=== PATIENT | female | born 1970 | race Caucasian/White ===

== ENCOUNTER → 2017-04-11 | Outpatient (CLI) | payer OTHER ==
--- NOTE | 2017-04-11 14:16 | DRAGON STRESS TEST REPORT ---
EXERCISE TREADMILL TEST. DATE OF PROCEDURE: April 11, 2017 INDICATION: Patient with unspecified chest pain. Resting EKG: Sinus rhythm, no baseline ST segment changes. PROCEDURE REPORT: Baseline heart rate: 70 beats per minute with blood pressure of 130/80. Patient had no significant complaints at baseline. Patient was exercised on a standard Benjamin protocol. Patient exercised for total of 6 minutes. Exercise was stopped because of fatigue and shortness of breath. Patient complained of chest discomfort at peak exercise. If automatic blood pressure recorded and if felt not accurate manual blood pressure then were recorded at appropriate intervals. Peak heart rate: 150 bpm, 86% of predicted maximum. Peak blood pressure: 200/61 mmHg. Reason for termination: Dyspnea and fatigue. Patient also complained of chest discomfort at peak exercise. Double product: Adequate kcal Exercise EKG: Showed some baseline artifact during exercise and borderline ST segment depression of 0.5 mm in the inferior lateral chest leads felt not to be significant. CONCLUSIONS: Chest discomfort noted at peak exercise. However there was no significant ST segment changes noted. Below average exercise tolerance. RECOMMENDATIONS: Recommend nuclear stress test or stress echo as single-vessel disease can be missed. Aggressive risk factor modification, medical therapy. Consider cardiology consultation if clinically indicated. Kip Amaya M.D., [employer] Operator chassis mechanic, Board certified in cardiovascular diseases, Nuclear cardiology, Echocardiography Cardiac CT and cardiac MRI Ph. [phone] Ph. [phone] [facility]
--- NOTE | 2017-04-12 09:11 | XCELERA REPORT ---
[address] [address] Transthoracic Echocardiogram Report Name: REBECCA MITTAL Age: 47 yrs Gender: Female : 1970 Patient Status: Outpatient Patient Location: Study Date: 04/11/2017 09:42 AM Height: 66 in Weight: 245 lb BSA: 2.2 m2 Procedure: A complete two-dimensional transthoracic echocardiogram was performed (2D, M-mode, spectral and color flow Doppler). The study was technically adequate with some images being suboptimal in quality. Reason For Study: CP Ordering Physician: NATALIE HARDY Performed By: Dominga Deshpande Interpretation Summary The left ventricular ejection fraction is normal. Doppler measurements suggest normal left ventricular diastolic function There is normal left ventricular wall thickness. The left ventricle is grossly normal size. No regional wall motion abnormalities noted. Borderline right ventricular enlargement. The right atrium is normal. The left atrial size is normal. There is a trace amount of mitral regurgitation There is no mitral valve stenosis. There is no aortic valve stenosis No aortic regurgitation is present. There is a trace or physiologic amount of tricuspid regurgitation Tricuspid regurgitation jet envelope not well defined to measure RV systolic pressure accurately. The aortic root is not well visualized but is probably normal size. The inferior vena cava appeared normal and decreased > 50% with respiration (RAP 5-10 mmHg) There is no pericardial effusion. MMode/2D Measurements \T\ Calculations RVDd: 3.2 cm LVIDd: 4.3 cm FS: 38.1 % Ao root diam: 2.4 cm IVSd: 1.0 cm LVIDs: 2.7 cm EDV(Teich): 83.8 ml LVPWd: 1.0 cm ESV(Teich): 26.3 ml Ao root area: 4.6 cm2 EF(Teich): 68.6 % Doppler Measurements \T\ Calculations MV E max lidya: MV dec slope: Ao V2 max: LV V1 max P.5 cm/sec 156.6 cm/sec 5.8 mmHg MV A max lidya: 351.6 cm/sec2 Ao max PG: LV V1 max: 79.2 cm/sec MV dec time: 9.8 mmHg 120.1 cm/sec MV E/A: 1.3 0.30 sec PI end-d lidya: TR max lidya: 109.8 cm/sec 154.7 cm/sec TR max P.6 mmHg Left Ventricle The left ventricle is grossly normal size. There is normal left ventricular wall thickness. The left ventricular ejection fraction is normal. Doppler measurements suggest normal left ventricular diastolic function. No regional wall motion abnormalities noted. Right Ventricle Borderline right ventricular enlargement. There is normal right ventricular wall thickness. The right ventricular systolic function is normal. Atria The right atrium is normal. The left atrial size is normal. Interarterial septum not well visualized and not well dopplered. Cannot comment on ASD/PFO presence. Mitral Valve The mitral valve is grossly normal. There is no mitral valve stenosis. There is a trace amount of mitral regurgitation. Aortic Valve The aortic valve is grossly normal. There is no aortic valve stenosis. No aortic regurgitation is present. Tricuspid Valve The tricuspid valve is not well visualized, but is grossly normal. There is no tricuspid stenosis. There is a trace or physiologic amount of tricuspid regurgitation. Tricuspid regurgitation jet envelope not well defined to measure RV systolic pressure accurately. Pulmonic Valve The pulmonic valve is not well visualized. Great Vessels The aortic root is not well visualized but is probably normal size. The inferior vena cava appeared normal and decreased > 50% with respiration (RAP 5-10 mmHg). Effusions There is no pericardial effusion. : NATALIE HARDY > Kip Amaya
== END ==
LOC: SP 08:44
PROVIDERS: ATTEND Physician Assistant
DX: R07.89 Other chest pain (principal)
CPT/HCPCS: 93017; 93306

== ENCOUNTER 2017-06-25 03:50 | Emergency (ER) | payer OTHER ==
[2017-06-25] MEDS ORDERED: FENTANYL CITRATE INJ/PF 100 MCG/2 ML AMPUL IV ONE (04:07)
--- NOTE | 2017-06-25 04:08 | ER Document Report ---
ED General - General Chief Complaint: Arm Injury Stated Complaint: RIGHT ELBOW PAIN Time Seen by Provider: 06/25/17 04:02 Notes: Patient is 47-year-old female who presents after slipping in her kitchen. Said she fell onto her right elbow. She says her elbows popped out of place. This is never happened before. She denies any other pain. She says she did hit her forehead on the fridge but does not hurt, she did not have loss of consciousness , she has had no vomiting. She complains of little bit numbness into the fourth and fifth digits of her right hand. She is able to move her fingers without any difficulty. No other complaints at this time. She says she has no medical allergies. TRAVEL OUTSIDE OF THE [place] IN LAST 30 DAYS: No Past Medical History - Social History Smoking Status: Never Smoker Frequency of alcohol use: None Drug Abuse: None Family History: Reviewed & Not Pertinent Review of Systems - Review of Systems Notes: My Normal Review Basic REVIEW OF SYSTEMS: CONSTITUTIONAL : Denies fever, chills, or sweats. Denies recent illness. RESPIRATORY: Denies cough, cold, or chest congestion. Denies shortness of breath, difficulty breathing, or wheezing. GASTROINTESTINAL: Denies abdominal pain. Denies nausea, vomiting, or diarrhea. Denies constipation. Last BM: MUSCULOSKELETAL: Pain to palpation of right elbow. SKIN: Denies rash or skin lesions. NEUROLOGICAL: Denies motor loss. Mild sensory loss in fourth and fifth digits of right hand. ALL OTHER SYSTEMS REVIEWED AND NEGATIVE. Physical Exam - Notes Notes: General Appearance: Well nourished, alert, cooperative, no acute distress, moderate obvious discomfort. Vitals: reviewed, See vital signs table. Head: Very small hematoma to the right forehead. No surrounding crepitance. Eyes: PERRL, EOMI, Conjuctiva clear Mouth: No decreasd moisture Throat: No tonsillar inflammation, No airway obstruction, No lymphadenopathy Neck: Supple, no neck tenderness Lungs: No wheezing, No rales, No rhonci, No accessory muscle use, good air exchange bilaterally. Heart: Normal rate, Regular rythm, No murmur, no rub Extremities: strength 5/5 in all extremities, good pulses in all extremities, patient is holding her right arm with the elbow in a flexed position. She says it is very painful if she tries to move her arm at all. She has no deformity to the upper arm or forearm. She has good radial and ulnar pulses. She has good distal sensation except for she feels it is a little bit diminished when I touch her fourth and fifth digits. She is able to fully flex and extend all fingers in her hand., no edema. Skin: warm, dry, appropriate color, no rash Neuro: speech clear, oriented x 3, normal affect, responds appropriately to questions. Course - Re-evaluation Re-evalutation: 06/25/17 06:00 After the patient received propofol she was well sedated and was able to easily reduce her right elbow. She now feels much improved. Patient will be placed in a sling but is encouraged to place her elbow through range of motion several times a day to help prevent it from becoming stiff. Patient to follow-up with the orthopedist for reevaluation. Patient to return to the ER if she has recurrence of dislocation, any recurrence of numbness or weakness into her hand , or if she has further concerns. Patient agrees with plan and will be discharged home. Dictation of this chart was performed using voice recognition software; therefore, there may be some unintended grammatical errors. Procedures - Conscious Sedation Conscious sedation Consent obtained: Yes Normal healthy pt.: P1. - ASA Classification Airway Evaluation: Normal anatomy Mallampati Classification: Class 1 Used during procedure: Suction available, IV access obtained, Pulse ox on pt., environmental monitoring technician on pt. Medications administered: Diprivan Reversal agents: None I personally performed/intraservice time: Sedation, Procedure, 30 min or less Complications: No Notes: Patient was given a total of 100mg of Propofol which provided good sedation without any complications. Patient has recovered from sedation. - Joint Reduction/Fracture Care right shoulder Consent obtained: Yes Conscious sedation: Yes Pre-procedure NV exam: No - some numbness in 4th and 5ht digits Fracture: Other - dislocation Manipulation comment: flexion with traction Post-procedure NV exam: Yes Post-reduction x-ray: Joint reduced Reduction attempts: 1 Complications: Yes Discharge - Discharge Clinical Impression: Dislocation of right elbow Qualifiers: Encounter type: initial encounter Qualified Code(s): S53.104A - Unspecified dislocation of right ulnohumeral joint, initial encounter Condition: Good Disposition: HOME, SELF-CARE Additional Instructions: Please follow-up with orthopedic doctor, Dr. Renae. Please wear a sling in the meantime. Take it out of the sling a few times a day to place your elbow thru range of motion to help keep it from becoming stiff. Please return to the ER immediately if you have increasing pain in your elbow, recurrence of dislocation of the elbow, weakness or numbness into your hand, or if you have any further concerns. Forms: Return to Work Referrals: GENIE RENAE MD [ACTIVE STAFF] - 06/27/17
[2017-06-25] MEDS ORDERED: PROPOFOL INJ 200 MG/20 ML VIAL IV ONE (04:57)
[2017-06-25] MEDS ORDERED: NORMAL SALINE 1000 ML 1,000 ML IV ONE (04:58)
--- NOTE | 2017-06-25 04:59 | RADIOLOGY REPORT (SQ) ---
EXAM DESCRIPTION: ELBOW RIGHT AP/LAT COMPLETED DATE/TIME: 06/25/2017 4:45 am REASON FOR STUDY: trauma COMPARISON: None. NUMBER OF VIEWS: Four views. TECHNIQUE: AP, lateral, and both oblique radiographic images acquired of the right elbow. LIMITATIONS: None. FINDINGS: MINERALIZATION: Normal. BONES: Complete lateral dislocation of the right elbow joints including the ulnohumeral and radiohume ral joints. 0.5 x 0.2 cm faint fracture fragment proximal to the ulnar head. JOINT: Small effusion/swelling. SOFT TISSUES: Small swelling. No radiopaque foreign body. OTHER: No other significant finding. IMPRESSION: Complete lateral dislocation of the right elbow joint. TECHNICAL DOCUMENTATION: JOB ID: [id number] [employer]- All Rights Reserved
[2017-06-25 06:02] VITALS: BP 154/76
--- NOTE | 2017-06-25 06:24 | RADIOLOGY REPORT (SQ) ---
EXAM DESCRIPTION: ELBOW RIGHT AP/LAT COMPLETED DATE/TIME: 06/25/2017 5:51 am REASON FOR STUDY: post reduction COMPARISON: None. NUMBER OF VIEWS: Three views. TECHNIQUE: Three-view radiographic images acquired of the right elbow. LIMITATIONS: None. FINDINGS: MINERALIZATION: Normal. BONES: No acute fracture or dislocation. No worrisome bone lesions. JOINT: No effusion. SOFT TISSUES: Mild swelling posterior to the right elbow. OTHER: No other significant finding. IMPRESSION: Interval reduction. Mild swelling. TECHNICAL DOCUMENTATION: JOB ID: [id number]- All Rights Reserved
== END 2017-06-25 07:23 | disposition home or self-care (01) ==
LOC: ER 03:50
DX: S53.144A Lateral dislocation of right ulnohumeral joint, initial encounter (principal); S00.83XA Contusion of other part of head, initial encounter; W01.198A Fall on same level from slipping, tripping and stumbling with subsequent striking against other object, initial encounter; R20.0 Anesthesia of skin; M25.521 Pain in right elbow
CPT/HCPCS: 99283; 99152; 96374; 73070; 24600; J3010

== ENCOUNTER 2020-06-03 13:42 | Observation (INO) | payer SELFPAY ==
--- NOTE | 2020-06-03 14:36 | EKG REPORT ---
SEVERITY:- ABNORMAL ECG - SINUS TACHYCARDIA PROBABLE INFERIOR INFARCT, AGE INDETERMINATE : Confirmed by: Nanci Lugo MD 03-Jun-2020 14:34:51
--- NOTE | 2020-06-03 14:38 | ER Document Report ---
ED General - General Chief Complaint: Chest Pain Stated Complaint: CHEST PAIN,ABNORMAL LABS Time Seen by Provider: 06/03/20 14:27 Mode of Arrival: Ambulatory Information source: Patient Notes: Patient is a 50-year-old female coming in today for anemia. He reports over the past year having menstrual cycles that are extremely heavy in nature. She has been on the Depakote shot to try to keep these under control. She has been having heavier than normal bleeding passing numerous large clots. She is reporting feeling lightheaded and very short of breath when she walks around the house just to do her regular activities of daily living. Apparently she went in to have a physical today. They checked her hemoglobin and it was 7. She was sent to the emergency department for further evaluation. TRAVEL OUTSIDE OF THE [place] IN LAST 30 DAYS: No - Related Data Allergies/Adverse Reactions: No Known Allergies Allergy (Unverified 06/03/20 14:36) Past Medical History - General Information source: Patient - Social History Smoking Status: Never Smoker Family History: Reviewed & Not Pertinent Patient has suicidal ideation: No Patient has homicidal ideation: No Review of Systems - Review of Systems Notes: Constitutional: No fevers. No chills. EENT: No eye redness. No eye pain. No ear pain. No sore throat. Cardiovascular: No chest pain. No palpitations. Respiratory: No cough. +shortness of breath. No respiratory distress. Gastrointestinal: No abdominal pain. No nausea, vomiting, or diarrhea. Genitourinary: Vaginal bleeding Musculoskeletal: Atraumatic. No swelling. No deformities. Skin: No rash or lesions. Lymphatic: No swollen lymph nodes. Neurologic: No headache. No syncope. +dizziness Psychiatric: No suicidal or homicidal ideation. Physical Exam - Vital signs Vitals: Temp Pulse Resp BP Pulse Ox 99.0 F 114 H 114 H 152/78 H 100 06/03/20 14:03 06/03/20 14:03 06/03/20 14:03 06/03/20 14:03 06/03/20 14:03 - Notes Notes: General: Well-developed, well-nourished. In no acute distress. Non-toxic appearing. Pale appearance Cardiac: Well-perfused. Regular rate and rhythm. No murmurs, rubs, or gallops. Pulmonary: No respiratory distress. No cyanosis. Bilateral lung carlos are clear to auscultation. Abdominal: Non-distended. Non-rigid. Bowels sounds are present in all four quadrants. No guarding or rebound. HEENT: Head is atraumatic. Conjunctivae not reddened. No tearing. PERRL. EOMI. Orbits atraumatic. No periorbital swelling or erythema. Oropharynx is without erythema, swelling, or exudates. Neck: Supple. No adenopathy. No meningismus. Dermatologic: Warm with good turgor. No rash. Atraumatic. Chest: Atraumatic. No chest wall tenderness to palpation. Musculoskeletal: Moves all extremities well. No range of motion deficits. no muscular or joint tenderness. No paraspinal muscle tenderness. no midline spinal tenderness or step-off. Genitourinary: Examination deferred Neurologic: No gross neurologic deficits. Psychiatric: Normal mood. Course - Re-evaluation Re-evalutation: 06/03/20 14:38 Think patient would probably benefit from a pelvic ultrasound given that we do not really know why she is having this heavier bleeding. We will get typical labs consistent with anemia work-up expecting potentially the possibility for blood transfusion. 06/03/20 15:51 Hemoglobin is 6.3. Given that we do not really know where this bleeding is coming from I contacted Dr. Zavala from [facility] who will admit the patient for blood transfusion. She ordered 3 units of packed red blood cells. Pelvic ultrasound is still pending. - Vital Signs Vital signs: Temp Pulse Resp BP Pulse Ox 99.0 F 114 H 13 140/66 H 100 06/03/20 14:03 06/03/20 14:03 06/03/20 14:09 06/03/20 14:09 06/03/20 14:40 - Laboratory Result Diagrams: 06/03/20 15:00 06/03/20 15:00 Laboratory results interpreted by me: 06/03/20 06/03/20 06/03/20 15:00 15:00 15:00 RBC 2.30 L Hgb 6.3 L Hct 19.3 L RDW 16.0 H Chloride 114 H Glucose 161 H Calcium 8.2 L Total Protein 5.7 L Albumin 3.3 L Crossmatch See Detail Discharge - Discharge Clinical Impression: Dysfunctional uterine bleeding, Symptomatic anemia Condition: Good Disposition: ADMITTED OBSERVATION Admitting Provider: Dr. Perla Zavala Unit Admitted: Labor and Delivery
--- NOTE | 2020-06-03 14:59 | RADIOLOGY REPORT (SQ) ---
EXAM DESCRIPTION: CHEST SINGLE VIEW IMAGES COMPLETED DATE/TIME: 06/03/2020 2:23 pm REASON FOR STUDY: bed t2 chest pain COMPARISON: None. EXAM PARAMETERS: NUMBER OF VIEWS: One view. TECHNIQUE: Single frontal radiographic view of the chest acquired. RADIATION DOSE: NA LIMITATIONS: None. FINDINGS: LUNGS AND PLEURA: No opacities, masses or pneumothorax. No pleural effusion. MEDIASTINUM AND HILAR STRUCTURES: No masses. Contour normal. HEART AND VASCULAR STRUCTURES: Heart normal in size. Normal vasculature. BONES: No acute findings. HARDWARE: None in the chest. OTHER: No other significant finding. IMPRESSION: 1. NO ACUTE RADIOGRAPHIC FINDING IN THE CHEST. TECHNICAL DOCUMENTATION: JOB ID: [id number] [employer]- All Rights Reserved Reading location - IP/workstation name: [email or web address]
[2020-06-03 15:24] LABS: ABSOLUTE EOSINOPHILS # (AUTO) 0.1 10^3/uL (0.0-0.6); ABSOLUTE LYMPHOCYTES (AUTO) 1.4 10^3/uL (0.5-4.7); ABSOLUTE MONOCYTES (AUTO) 0.2 10^3/uL (0.1-1.4); ABSOLUTE NEUT (AUTO) 3.2 10^3/uL (1.7-8.2); BASOPHILS % (AUTO) 0.4 % (0-2); EOSINOPHILS % (AUTO) 2.4 % (0-6); HEMATOCRIT 19.3 % (36.0-47.0); MEAN CORPUSCULAR HEMOGLOBIN 27.6 pg (27.0-33.4); MEAN CORPUSCULAR HGB CONC 32.8 g/dL (32.0-36.0); MEAN CORPUSCULAR VOLUME 84 fl (80-97); MONOCYTES % (AUTO) 4.2 % (3-13); PLATELET COUNT 156 10^3/uL (150-450); TOTAL CELLS COUNTED % (AUTO) 100 %
[2020-06-03 15:27] LABS: HEMOGLOBIN 6.3 g/dL (12.0-15.5)
[2020-06-03 15:43] LABS: ALBUMIN 3.3 g/dL (3.5-5.0); ALKALINE PHOSPHATASE 56 U/L (38-126); ANION GAP 6 (5-19); ASPARTATE AMINO TRANSFERASE 16 U/L (14-36); BILIRUBIN,DIRECT 0.3 mg/dL (0.0-0.4); BILIRUBIN,TOTAL 0.4 mg/dL (0.2-1.3); BLOOD UREA NITROGEN 10 mg/dL (7-20); CALCIUM 8.2 mg/dL (8.4-10.2); CARBON DIOXIDE 23 mmol/L (22-30); CHLORIDE 114 mmol/L (98-107); CREATINE KINASE 76 U/L (30-135); GLUCOSE 161 mg/dL (75-110); TOTAL PROTEIN 5.7 g/dL (6.3-8.2)
[2020-06-03] MEDS ORDERED: FUROSEMIDE INJ/PF 20 MG/2 ML SDV IV PRN ×2 (15:46→18:15)
[2020-06-03] MEDS ORDERED: NORMAL SALINE 250 ML IV PRN ×4 (15:46→17:25)
[2020-06-03 15:54] LABS: CREATINE KINASE MB 0.65 ng/mL (<4.55)
[2020-06-03 15:57] LABS: TROPONIN I < 0.012 ng/mL
[2020-06-03] MEDS ORDERED: DIPHENHYDRAMINE HCL 50 MG CAPSULE PO ONE (17:22)
[2020-06-03] MEDS ORDERED: ACETAMINOPHEN 325 MG TABLET PO ONE (17:23)
--- NOTE | 2020-06-03 17:27 | RADIOLOGY REPORT (SQ) ---
EXAM DESCRIPTION: U/S NON-OB PELVIS LTD W/O DOP IMAGES COMPLETED DATE/TIME: 06/03/2020 5:05 pm REASON FOR STUDY: DUB COMPARISON: None. TECHNIQUE: Dynamic and static grayscale images acquired of the pelvis via transabdominal approach an d recorded on PACS. Additional selected color Doppler and spectral images recorded. LIMITATIONS: None. FINDINGS: UTERUS: Contour normal. No mass. ENDOMETRIAL STRIPE: There is heterogenous material in the endometrium, measuring 2.7 x 3.3 x 4.4 cm. CERVIX: No nabothian cysts. RIGHT OVARY AND DOPPLER: Normal size. No worrisome masses. Normal arterial vascular flow without evid ence for torsion. LEFT OVARY AND DOPPLER: Normal size. No worrisome masses. Normal arterial vascular flow without evide nce for torsion. FREE FLUID: None noted. OTHER: No other significant finding. MEASUREMENTS: UTERUS: 6.1 x 6.4 x 10.7 cm. ENDOMETRIAL STRIPE: See above. RIGHT OVARY: 1.3 x 2.1 x 2.1 cm. LEFT OVARY: 1.3 x 1.6 x 2.0 cm. IMPRESSION: HETEROGENOUS MATERIAL IN THE ENDOMETRIUM. LIMITED EVALUATION ON TRANSABDOMINAL IMAGING. THIS MAY REPRESENT BLOOD VERSUS SUBMUCOSAL FIBROID VERSUS ENDOMETRIAL MASS. TRANSVAGINAL IMAGING M AY PROVIDE BETTER VISUALIZATION. TECHNICAL DOCUMENTATION: JOB ID: [id number] 2010 [employer]- All Rights Reserved Rev-01/27 Reading location - IP/workstation name: [email or web address]
--- NOTE | 2020-06-03 17:57 | PDOC H&P ---
History of Present Illness Admission Date/PCP: 06/03/20 16:06 Patient complains of: excessive vaginal bleeding History of Present Illness: REBECCA MITTAL is a 50 year old female here with excessive vaginal bleeding. [facility] She saw physician at [facility] last week to get additional depo provera because she indicated that normally she starts to bleed when her depo comes close to being due. She indicates that her bleeding now has slowed to mild/moderate bleeding but she is fatigued and dizzy today. Social History Information Source: Patient Smoking Status: Never Smoker Electronic Cigarette use?: No Frequency of Alcohol Use: Rare Hx Recreational Drug Use: No Drugs: None Hx Prescription Drug Abuse: No Family History Family History: Reviewed & Not Pertinent Parental Family History Reviewed: No Children Family History Reviewed: No Sibling(s) Family History Reviewed.: No Medication/Allergy Home Medications: Hydrochlorothiazide 12.5 mg PO DAILY 06/03/20 Medroxyprogesterone Acet [Depo-Provera Inj 150 mg/1 ml Vial] 150 mg IM Q3M 0 06/03/20 Allergies/Adverse Reactions: No Known Allergies Allergy (Unverified 06/03/20 14:36) Physical Exam - Physical Exam Vital Signs: Temp Pulse Resp BP Pulse Ox 97.6 F 101 H 18 149/64 H 100 06/03/20 17:26 06/03/20 17:26 06/03/20 17:26 06/03/20 17:26 06/03/20 17:26 Intake & Output 06/02/20 06/03/20 06/04/20 06:59 06:59 06:59 Weight 111.13 kg General appearance: PRESENT: no acute distress, cooperative Result Laboratory Results: 06/03/20 15:00 06/03/20 15:00 06/03/20 06/03/20 06/03/20 14:30 15:00 15:00 WBC Cancelled 5.0 RBC Cancelled 2.30 L Hgb Cancelled 6.3 L Hct Cancelled 19.3 L MCV Cancelled 84 MCH Cancelled 27.6 MCHC Cancelled 32.8 RDW Cancelled 16.0 H Plt Count Cancelled 156 Seg Neutrophils % Cancelled 64.0 Sodium 142.5 Potassium 4.0 Chloride 114 H Carbon Dioxide 23 Anion Gap 6 BUN 10 Creatinine 0.60 Est GFR ( Amer) > 60 Glucose 161 H Calcium 8.2 L Total Bilirubin 0.4 AST 16 Alkaline Phosphatase 56 Total Protein 5.7 L Albumin 3.3 L Blood Type Antibody Screen 06/03/20 15:00 WBC RBC Hgb Hct MCV MCH MCHC RDW Plt Count Seg Neutrophils % Sodium Potassium Chloride Carbon Dioxide Anion Gap BUN Creatinine Est GFR ( Amer) Glucose Calcium Total Bilirubin AST Alkaline Phosphatase Total Protein Albumin Blood Type A POSITIVE Antibody Screen NEGATIVE 06/03/20 06/03/20 15:00 15:00 Creatine Kinase 76 CK-MB (CK-2) 0.65 Troponin I < 0.012 Impressions: Chest X-Ray 06/03/20 14:09 IMPRESSION: 1. NO ACUTE RADIOGRAPHIC FINDING IN THE CHEST. Pelvis Ultrasound 06/03/20 15:39 IMPRESSION: HETEROGENOUS MATERIAL IN THE ENDOMETRIUM. LIMITED EVALUATION ON TRANSABDOMINAL IMAGING. THIS MAY REPRESENT BLOOD VERSUS SUBMUCOSAL FIBROID VERSUS ENDOMETRIAL MASS. TRANSVAGINAL IMAGING MAY PROVIDE BETTER VISUALIZATION. Assessment & Plan - Diagnosis (1) Dysfunctional uterine bleeding Is this a current diagnosis for this admission?: Yes (2) Symptomatic anemia Is this a current diagnosis for this admission?: Yes - Time Time Spent: 30 to 50 Minutes Critical Time spent with patient: Less than 15 minutes Medications reviewed and adjusted accordingly: Yes Anticipated Discharge Disposition: Home, Self Care Anticipated Discharge Timeframe: within 24 hours - Inpatient Certification Based on my medical assessment, after consideration of the patient's comorbidities, presenting symptoms, or acuity I expect that the services needed warrant INPATIENT care.: Yes I certify that my determination is in accordance with my understanding of Medicare's requirements for reasonable and necessary INPATIENT services [42 CFR 412.3e].: Yes Medical Necessity: Failure to Improve With Outpatient Therapy, Other - need for blood transfusion - Plan Summary Plan Summary: will give IV premarin to stabilize the endometrium. Plan to send home with control pills and follow up with [facility] physician next week. Blood transfusion x 3 units. Will give lasix 20 mg between 2nd and 3rd unit and recheck CBC in AM.
[2020-06-03] MEDS: ESTROGENS,CONJUGATED 25 MG VIAL IV SCH ×2 (18:02→23:20)
[2020-06-04] MEDS ORDERED: ACETAMINOPHEN 325 MG TABLET PO ONE (06:00)
[2020-06-04] MEDS: ESTROGENS,CONJUGATED 25 MG VIAL IV SCH ×2 (06:03→17:14)
[2020-06-04] MEDS ORDERED: HYDROCHLOROTHIAZIDE 12.5 MG TABLET PO SCH (08:00)
--- NOTE | 2020-06-04 11:08 | PDOC DISCHARGE SUMMARY ---
Impression - Admit/DC Date/PCP Admission Date/Primary Care Provider: 06/03/20 16:06 Discharge Date: 06/04/20 - Assessment Summary: The patient was admitted and underwent blood transfusion. She has been seen in office but no pap or EmBX yet. She is doing well now and the transfusion is complete. We will have her followup in the office for pap and EmBx. After this she would like to proceed with a uterine ablation. - Additional Information Resuscitation Status: Full Code Discharge Diet: Regular Discharge Activity: Pelvic Rest Home Medications: Hydrochlorothiazide 12.5 mg PO DAILY 06/03/20 Medroxyprogesterone Acet [Depo-Provera Inj 150 mg/1 ml Vial] 150 mg IM Q3M 06/03/20 Vit/Dha [ Multi + Dha Capsule] 1 cap PO DAILY 06/03/20 Ferrous Sulfate [Feosol 325 mg Tablet] 1 tab PO BID 06/04/20 History of Present Illiness History of Present Illness: REBECCA MITTAL is a 50 year old female Physical Exam - Physical Exam Vital Signs: Temp Pulse Resp BP Pulse Ox 97.7 F 80 20 151/67 H 99 06/04/20 09:15 06/04/20 09:15 06/04/20 09:15 06/04/20 09:15 06/04/20 09:15 Intake & Output 06/03/20 06/04/20 06/05/20 06:59 06:59 06:59 Intake Total 1374 300 Output Total 1040 Balance 334 300 Weight 111.13 kg Results Laboratory Results: WBC 5.0 10^3/uL (4.0-10.5) 06/03/20 15:00 RBC 2.30 10^6/uL (3.72-5.28) L 06/03/20 15:00 Hgb 6.3 g/dL (12.0-15.5) L 06/03/20 15:00 Hct 19.3 % (36.0-47.0) L 06/03/20 15:00 MCV 84 fl (80-97) 06/03/20 15:00 MCH 27.6 pg (27.0-33.4) 06/03/20 15:00 MCHC 32.8 g/dL (32.0-36.0) 06/03/20 15:00 RDW 16.0 % (11.5-14.0) H 06/03/20 15:00 Plt Count 156 10^3/uL (150-450) 06/03/20 15:00 Lymph % (Auto) 29.0 % (13-45) 06/03/20 15:00 [place] % (Auto) 4.2 % (3-13) 06/03/20 15:00 Eos % (Auto) 2.4 % (0-6) 06/03/20 15:00 Baso % (Auto) 0.4 % (0-2) 06/03/20 15:00 Absolute Neuts (auto) 3.2 10^3/uL (1.7-8.2) 06/03/20 15:00 Absolute Lymphs (auto) 1.4 10^3/uL (0.5-4.7) 06/03/20 15:00 Absolute Monos (auto) 0.2 10^3/uL (0.1-1.4) 06/03/20 15:00 Absolute Eos (auto) 0.1 10^3/uL (0.0-0.6) 06/03/20 15:00 Absolute Basos (auto) 0.0 10^3/uL (0.0-0.2) 06/03/20 15:00 Seg Neutrophils % 64.0 % (42-78) 06/03/20 15:00 Platelet Estimate Cancelled 06/03/20 14:30 Sodium 142.5 mmol/L (137-145) 06/03/20 15:00 Potassium 4.0 mmol/L (3.6-5.0) 06/03/20 15:00 Chloride 114 mmol/L (98-107) H 06/03/20 15:00 Carbon Dioxide 23 mmol/L (22-30) 06/03/20 15:00 Anion Gap 6 (5-19) 06/03/20 15:00 BUN 10 mg/dL (7-20) 06/03/20 15:00 Creatinine 0.60 mg/dL (0.52-1.25) 06/03/20 15:00 Est GFR ( Amer) > 60 (>60) 06/03/20 15:00 Est GFR (MDRD) Non-Af > 60 (>60) 06/03/20 15:00 Glucose 161 mg/dL (75-110) H 06/03/20 15:00 Calcium 8.2 mg/dL (8.4-10.2) L 06/03/20 15:00 Total Bilirubin 0.4 mg/dL (0.2-1.3) 06/03/20 15:00 Direct Bilirubin 0.3 mg/dL (0.0-0.4) 06/03/20 15:00 Neonat Total Bilirubin Not Reportable 06/03/20 15:00 Neonat Direct Bilirubin Not Reportable 06/03/20 15:00 Neonat Indirect Bili Not Reportable 06/03/20 15:00 AST 16 U/L (14-36) 06/03/20 15:00 ALT 18 U/L (<35) 06/03/20 15:00 Alkaline Phosphatase 56 U/L (38-126) 06/03/20 15:00 Creatine Kinase 76 U/L (30-135) 06/03/20 15:00 CK-MB (CK-2) 0.65 ng/mL (<4.55) 06/03/20 15:00 Troponin I < 0.012 ng/mL 06/03/20 15:00 Total Protein 5.7 g/dL (6.3-8.2) L 06/03/20 15:00 Albumin 3.3 g/dL (3.5-5.0) L 06/03/20 15:00 Slides for Path Review Cancelled 06/03/20 14:30 Blood Type A POSITIVE 06/03/20 15:00 Antibody Screen NEGATIVE 06/03/20 15:00 Crossmatch See Detail 06/03/20 15:00 06/03/20 15:00 CK-MB (CK-2) 0.65 Troponin I < 0.012 Impressions: Chest X-Ray 06/03/20 14:09 IMPRESSION: 1. NO ACUTE RADIOGRAPHIC FINDING IN THE CHEST. Pelvis Ultrasound 06/03/20 15:39 IMPRESSION: HETEROGENOUS MATERIAL IN THE ENDOMETRIUM. LIMITED EVALUATION ON TR ANSABDOMINAL IMAGING. THIS MAY REPRESENT BLOOD VERSUS SUBMUCOSAL FIBROID VERSUS ENDOMETRIAL MASS. TRANSVAGINAL IMAGING MAY PROVIDE BETTER VISUALIZATION. Stroke Is this a Stroke Patient?: No Acute Heart Failure Is this a Heart Failure Patient?: No
[2020-06-04 12:11] LABS: ABSOLUTE BASOPHILS # (AUTO) 0.1 10^3/uL (0.0-0.2); ABSOLUTE EOSINOPHILS # (AUTO) 0.2 10^3/uL (0.0-0.6); ABSOLUTE LYMPHOCYTES (AUTO) 1.8 10^3/uL (0.5-4.7); ABSOLUTE MONOCYTES (AUTO) 0.4 10^3/uL (0.1-1.4); BASOPHILS % (AUTO) 0.9 % (0-2); EOSINOPHILS % (AUTO) 2.4 % (0-6); LYMPHOCYTES % (AUTO) 21.9 % (13-45); MEAN CORPUSCULAR HEMOGLOBIN 28.3 pg (27.0-33.4); MEAN CORPUSCULAR HGB CONC 35.1 g/dL (32.0-36.0); MEAN CORPUSCULAR VOLUME 81 fl (80-97); MONOCYTES % (AUTO) 4.2 % (3-13); PLATELET COUNT 173 10^3/uL (150-450); RED BLOOD COUNT 3.49 10^6/uL (3.72-5.28); RED CELL DISTRIBUTION WIDTH 15.5 % (11.5-14.0); SEGMENTED NEUTROPHILS % (AUTO) 70.6 % (42-78); TOTAL CELLS COUNTED % (AUTO) 100 %; WHITE BLOOD COUNT 8.4 10^3/uL (4.0-10.5)
[2020-06-04 12:16] LABS: HEMOGLOBIN 9.9 g/dL (12.0-15.5)
[2020-06-04 15:06] VITALS: BP 152/66
== END 2020-06-04 18:24 | disposition home or self-care (01) ==
LOC: ER 13:42 → EH 16:06 → 2N 17:10
PROVIDERS: ADMIT Obstetrics & Gynecology; ATTEND Obstetrics & Gynecology
DX: N93.8 Other specified abnormal uterine and vaginal bleeding (principal); D50.0 Iron deficiency anemia secondary to blood loss (chronic); N92.0 Excessive and frequent menstruation with regular cycle; Z79.899 Other long term (current) drug therapy
CPT/HCPCS: 93005; 99285; 86900; 86901; 36415 ×2; 82553; 36430; 86850; 82550; 85025 ×2; 80053; 84484; 86920; 71045; 76857; 93010; G0378 ×2; P9016 ×2; J1410 ×2; J1940; J3490

== ENCOUNTER → 2020-06-12 | Outpatient (CLI) | payer BC ==
--- NOTE | 2020-06-12 09:50 | WOMENS IMAGING REPORT ---
EXAM DESCRIPTION: JEREMIAH WARRIOR 3D BILAT SCREEN IMAGES COMPLETED DATE/TIME: 06/12/2020 6:41 am [facility] STUDY[facility] MALIGNANT NEOPLASM OF BREAST Z12.31 ENCNTR SCREEN MAMMOGRAM FOR MALIGNANT NEOPLASM OF ANNA COMPARISON: None. EXAM PARAMETERS: Views: Standard craniocaudal and mediolateral oblique views of each breast recorded using digital acquisition and breast tomosynthesis. . Read with the assistance of CAD. .[facility] - [place] [employer]cker Version 9.2 LIMITATIONS: None. FINDINGS: No suspicious masses, suspicious calcifications or architectural distortion. No areas of c oncern. IMPRESSION: NEGATIVE MAMMOGRAM. BIRADS 1. BREAST DENSITY: c. The breasts are heterogeneously dense, which may obscure small masses. BIRAD: ASSESSMENT: 1 NEGATIVE RECOMMENDATION: ROUTINE SCREENING COMMENT: The patient has been notified of the results by letter per MQSA requirements. Additional no tification policies are in place for contacting patient with suspicious or incomplete findings. Quality ID #[id number]: [employer] [place] [employer] recommends an annual screening mammogram for women aged 40 years or over. This facility utilizes a reminder system to ensure that all patients receive reminder letters, and/or direct phone calls for appointments. This includes reminders for routine scr eening mammograms, diagnostic mammograms, or other Breast Imaging Interventions when appropriate. Th is patient will be placed in the appropriate reminder system. TECHNICAL DOCUMENTATION: FINDING NUMBER: (1) ASSESSMENT: (1) JOB ID: [id number] 2010 [employer]- All Rights Reserved Reading location - IP/workstation name: [email or web address]
== END ==
LOC: WI 07:19
PROVIDERS: ATTEND Midwife
DX: Z12.31 Encounter for screening mammogram for malignant neoplasm of breast (principal)
CPT/HCPCS: 77063